=== PATIENT | female | born 1980 | race African-American/Black ===

== ENCOUNTER 2019-02-23 21:31 | Emergency (ER) | payer BC ==
[~2019-02-23] VITALS: Ht 157.5 cm; Wt 58.0 kg
[2019-02-23 22:45] VITALS: BP 127/86
== END 2019-02-24 01:30 | disposition left against medical advice (07) ==
LOC: ER 21:31
DX: M79.622 Pain in left upper arm (principal); Z53.21 Procedure and treatment not carried out due to patient leaving prior to being seen by health care provider
CPT/HCPCS: 93005